=== PATIENT | male | born 1940 ===

== ENCOUNTER 2021-03-20 08:10 | Outpatient (CLI) | payer SELFPAY ==
--- NOTE | 2021-03-20 08:00 | RT.EKG_ITS ---
APPROVED REPORT Exam: Resting ECG Reason for Exam: CAD Patient Location: O HR:91 bpm ECG Measurements Heart Rate 91 AXIS MN 176 P 67 QRSd 98 QRS 19 QT 342 T 53 QTc 421 Conclusion Sinus rhythm...normal P axis, V-rate 50- 99 Normal Electrocardiogram
== END 2021-03-20 08:11 | disposition home or self-care (01) ==
LOC: DI.CARD 08:12
PROVIDERS: Visit Provider Internal Medicine Cardiovascular Disease
DX: I10 Essential (primary) hypertension (principal); I25.10 Atherosclerotic heart disease of native coronary artery without angina pectoris
CPT/HCPCS: 93010

== ENCOUNTER → 2021-03-20 12:41 | Outpatient (BNVA) | payer MEDICARE, SELFPAY | PROVIDERS: Visit Provider Internal Medicine Cardiovascular Disease | DX: I25.10 Atherosclerotic heart disease of native coronary artery without angina pectoris (principal); I10 Essential (primary) hypertension; J44.9 Chronic obstructive pulmonary disease, unspecified; Z87.891 Personal history of nicotine dependence | CPT/HCPCS: 93005; 99203 ==

== ENCOUNTER → 2021-04-11 01:24 | Outpatient (CLI) | payer MEDICARE, MEDICAID, SELFPAY ==
--- NOTE | 2021-04-11 07:00 | DI.NM_ITS ---
APPROVED REPORT Exam: Exercise Treadmill Patient Location: Out-Patient Room/Bed: Stress Nurse: Angeline Pickard RN Ordering Provider:ROSHAN BURTON, Contact Number: BMI: 25.84 Baseline Rhythm: Sinus Rhythm Indications: CAD Medical History Medical History: COPD, HTN, HLD, CAD, Former smoker Cardiac Medications: Atorvastatin, Aspirin, Albuterol sulfate, Supplemental oxygen use, Allergies: Bee venom protein Cardiac Risk Factors: HTN, Hyperlipidemia, Diabetes (non-insulin), Smoking (former), COPD Previous Cardiac Procedures: None Pretest Chest Pain Characteristics: Dyspnea Exercise History: Sedentary Physical Disabilities: None Lung Sounds: Clear to auscultation Heart Sounds: Regular Stress Test Details Test: Exercise stress testing was performed using a modified Remington protocol. Nuclear Acquisition: Rest Tc-99m/Stress Tc-99m 1 day Rest Isotope: Tc-99m Sestamibi. Dose: 10.0 Date: 04/11/2021 Injection Time: 1120 Stress Isotope: Tc-99m Sestamibi. Dose: 30.5 Date: 04/11/2021 Injection Time: 1321 HR Resting HR Supine: 74 bpm Max Heart Rate (APMHR): 138.229670 bpm Resting HR Standin bpm Target HR (85% APMHR): 117.815641 bpm Max HR Achieved: 129 bpm % of APMHR: 93.48 Recovery HR: 86 bpm HR response to stress: Normal HR response to stress BP Resting BP Supine: 134/70 mmHg Resting BP Standin/68 mmHg Max BP: 180/72 mmHg Recovery BP: 142/72 mmHg BP response to stress: Normal blood pressure response to stress. ECG Resting ECG: Sinus Rhythm Ectopy: unifocal PVCs Stress ECG: Sinus Tachycardia ST Change: No significant ST segment changes noted Arrhythmia: PVCs Recovery ECG: Sinus Rhythm Recovery ST Change: No significant ST segment changes noted Recovery Arrhythmia: unifocal PVCs, PACs Clinical Reason for Termination: Leg fatigue Stress Symptoms: Leg Fatigue, Dyspnea Exercise duration: 1 min59 sec Exercise capacity: 3.69 METs Rate Pressure Product: [id number] Stress ECG Conclusion 1. Resting electrocardiogram showed voltage for left ventricular hypertrophy 2. Patient exercised on the Remington protocol and completed a workload of 3.69 METS, stopping due to leg fatigue and shortness of breath 3. Heart rate achieved was 92% of predicted heart rate for age 4. Electrocardiographic portion of the test showed no evidence of myocardial ischemia 5. See MPI report MPI Conclusion Normal myocardial perfusion, no evidence of ischemia or prior infarction EF 52%, normal wall motion Radiologist Interpretation Radiologist agrees with Labor Employment Associate's Interpretation. Radiologist Interpretation by: Josesito Arreaga MD Interpretation Date/Time: 04/11/2021 16:11:29
== END ==
PROVIDERS: Visit Provider Internal Medicine Cardiovascular Disease
DX: I25.10 Atherosclerotic heart disease of native coronary artery without angina pectoris (principal); J44.9 Chronic obstructive pulmonary disease, unspecified; I10 Essential (primary) hypertension; Z87.891 Personal history of nicotine dependence
CPT/HCPCS: 78452; 93016; 93018; 93017

== ENCOUNTER → 2021-04-17 10:00 | Outpatient (BNVA) | payer MEDICARE, SELFPAY | PROVIDERS: Visit Provider Internal Medicine Cardiovascular Disease | DX: I25.10 Atherosclerotic heart disease of native coronary artery without angina pectoris (principal); I10 Essential (primary) hypertension; J44.9 Chronic obstructive pulmonary disease, unspecified | CPT/HCPCS: 99211; 99441 ==